=== PATIENT | female | born 1975 | race Caucasian/White ===

== ENCOUNTER 2016-08-10 13:43 | Emergency (ER) | payer OTHER ==
[~2016-08-10] VITALS: Ht 167.6 cm; Wt 57.6 kg
[2016-08-10] MEDS ORDERED: MAGIC MOUTHWASH SWISH&SPIT (14:12)
[2016-08-10] MEDS ORDERED: SEROQUEL 50 MG50 MG PO (14:21)
[2016-08-10] MEDS ORDERED: TRAZODONE HCL50 MG PO (14:21)
[2016-08-10] MEDS ORDERED: AMBIEN 5 MG TABL5 M1 PO (14:21)
[2016-08-10] MEDS ORDERED: UNICOMPLEX M TA1 TA1 PO (14:22)
[2016-08-10] MEDS ORDERED: ZOLOFT25 MG PO (14:22)
[2016-08-10] MEDS ORDERED: CLONAZEPAM 0.50.5 M1 PO (14:22)
[2016-08-10 14:23] VITALS: BP 133/100
== END 2016-08-10 14:24 | disposition home or self-care (01) ==
LOC: ER 13:43
DX: K02.9 Dental caries, unspecified (principal); R50.9 Fever, unspecified; R11.0 Nausea; F17.210 Nicotine dependence, cigarettes, uncomplicated; F12.90 Cannabis use, unspecified, uncomplicated; Z88.8 Allergy status to other drugs, medicaments and biological substances

== ENCOUNTER 2017-09-13 16:31 | Emergency (ER) | payer OTHER ==
[~2017-09-13] VITALS: Ht 167.6 cm; Wt 68.0 kg
--- NOTE | ~2017-09-13 | EKG ---
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[facility] : 1975 Requested By: Khanh Pond Order Number: [id number] MD: Jovani Carroll Measurements Intervals [place] Rate: 70 P: 58 NJ: 159 QRS: -17 QRSD: 94 T: 31 QT: 406 QTc: 439 Interpretive Statements Sinus rhythm Borderline left axis deviation No previous ECG available for comparison Electronically Signed On 09-14-2017 8:02:36 CLINICAL TRIALS SYSTEMS ADMINISTRATOR by Jovani Carroll [email or web address] <ELECTRONICALLY SIGNED> By: Jovani Carroll MD, [facility] 09/14/17 0802 1859 58 Jovani Carroll MD, FACC /EPI
[~2017-09-13 16:31] MED LIST: AMBIEN 5 MG TABL5 M1 PO; CLONAZEPAM 0.50.5 M1 PO; MAGIC MOUTHWASH SWISH&SPIT; SEROQUEL 50 MG50 MG PO; TRAZODONE HCL50 MG PO; UNICOMPLEX M TA1 TA1 PO; ZOLOFT25 MG PO
[2017-09-13 16:58] LABS: URINE BILIRUBIN NEGATIVE (Negative); URINE BLOOD NEGATIVE (Negative); URINE CLARITY CLEAR; URINE COLOR YELLOW; URINE GLUCOSE-RANDOM* NEGATIVE (Negative); URINE KETONES NEGATIVE (Negative); URINE LEUKOCYTES NEGATIVE (Negative); URINE NITRITE NEGATIVE (Negative); URINE PROTEIN (DIPSTICK) NEGATIVE (Negative); URINE SPECIFIC GRAVITY <= 1.005 (1.005-1.035); URINE UROBILINOGEN 0.2 E.U./dl (0.2-1.0)
[2017-09-13 17:15] LABS: ABSOLUTE NEUTROPHILS 3.5 thou/uL (1.4-8.2); BASOPHILS 0.7 % (0.0-2.0); EOSINOPHILS 1.3 % (0.0-3.0); HEMATOCRIT 36.8 % (37.0-47.0); HEMOGLOBIN 12.8 gm/dL (12.0-15.0); LYMPHOCYTES 35.2 % (24.0-44.0); MCH 32.1 pg (26.0-34.0); MCHC 34.7 g/dL (28.0-37.0); MCV 92.5 fL (80.0-100.0); MONOCYTES 6.4 % (1.0-8.0); PLATELET COUNT 290 thou/uL (150-400); POLYS 56.4 % (36.0-66.0); RBC 3.99 mil/uL (4.20-5.00); RDW 11.7 % (10.5-14.5); WBC 6.3 thou/uL (4.0-11.0)
[2017-09-13] MEDS ORDERED: DEPAKOTE ER500 MG PO (17:16)
[2017-09-13] MEDS ORDERED: PHENERGAN 25 MG25 M1 PO ×2 (17:17→19:48)
[2017-09-13] MEDS ORDERED: NICOTINE TRANSD21 M1 (17:18)
[2017-09-13 17:21] LABS: CALCIUM 9.1 mg/dL (8.5-10.1); CREATININE 0.8 mg/dL (0.6-1.0); POTASSIUM 3.9 mmol/L (3.5-5.1)
[2017-09-13] MEDS ORDERED: AMOXICILLIN500 M1 PO (19:43)
[2017-09-13] MEDS ORDERED: ANTIVERT25 MG PO (19:43)
[2017-09-13] MEDS ORDERED: IBUPROFEN 600600 M1 PO (19:43)
== END 2017-09-13 19:56 | disposition home or self-care (01) ==
LOC: ER 16:31
PROVIDERS: Nurse Practitioner
DX: R51 Headache (principal); R11.2 Nausea with vomiting, unspecified; R68.84 Jaw pain; R42 Dizziness and giddiness; Z87.891 Personal history of nicotine dependence; Z88.8 Allergy status to other drugs, medicaments and biological substances

== ENCOUNTER 2017-12-30 12:38 | Emergency (ER) | payer OTHER ==
[~2017-12-30] VITALS: Ht 167.6 cm; Wt 53.5 kg
[~2017-12-30 12:38] MED LIST changes: +AMOXICILLIN500 M1 PO; +ANTIVERT25 MG PO; +DEPAKOTE ER500 MG PO; +IBUPROFEN 600600 M1 PO; +NICOTINE TRANSD21 M1; +PHENERGAN 25 MG25 M1 PO
[2017-12-30 13:27] LABS: ABSOLUTE NEUTROPHILS 5.1 thou/uL (1.4-8.2); BASOPHILS 0.6 % (0.0-2.0); EOSINOPHILS 0.4 % (0.0-3.0); HEMOGLOBIN 15.1 gm/dL (12.0-15.0); LYMPHOCYTES 16.2 % (24.0-44.0); MCH 32.3 pg (26.0-34.0); MCHC 34.3 g/dL (28.0-37.0); MCV 94.3 fL (80.0-100.0); MONOCYTES 7.8 % (1.0-8.0); PLATELET COUNT 327 thou/uL (150-400); RBC 4.67 mil/uL (4.20-5.00); RDW 13.4 % (10.5-14.5); WBC 6.8 thou/uL (4.0-11.0)
[2017-12-30 13:29] LABS: URINE BILIRUBIN NEGATIVE (Negative); URINE BLOOD NEGATIVE (Negative); URINE CLARITY CLEAR; URINE COLOR YELLOW; URINE GLUCOSE-RANDOM* NEGATIVE (Negative); URINE KETONES TRACE (Negative); URINE LEUKOCYTES-REFLEX NEGATIVE (Negative); URINE NITRITE-REFLEX NEGATIVE (Negative); URINE PROTEIN (DIPSTICK) NEGATIVE (Negative)
[2017-12-30 13:35] LABS: CALCIUM 10.2 mg/dL (8.5-10.1); CREATININE 0.7 mg/dL (0.6-1.0); POTASSIUM 3.8 mmol/L (3.5-5.1)
[2017-12-30 13:40] LABS: ALBUMIN 4.2 g/dL (3.4-5.0); TOTAL BILIRUBIN 0.7 mg/dL (<0.1-1.0); TOTAL PROTEIN 8.5 g/dL (6.4-8.2)
[2017-12-30] MEDS ORDERED: HYDROCODONE-AP1 EAC6 PO (14:50)
[2017-12-30 15:20] VITALS: BP 136/88
== END 2017-12-30 15:20 | disposition home or self-care (01) ==
LOC: ER 12:38
PROVIDERS: Physician Assistant
DX: R10.9 Unspecified abdominal pain (principal); R11.2 Nausea with vomiting, unspecified; F31.9 Bipolar disorder, unspecified; M79.601 Pain in right arm; R07.81 Pleurodynia; Y04.8XXA Assault by other bodily force, initial encounter; Y93.89 Activity, other specified; Y92.89 Other specified places as the place of occurrence of the external cause; Y99.8 Other external cause status

== ENCOUNTER 2018-05-12 17:37 | Emergency (ER) | payer OTHER ==
[~2018-05-12] VITALS: Ht 167.6 cm; Wt 52.2 kg
[~2018-05-12 17:37] MED LIST changes: +HYDROCODONE-AP1 EAC6 PO
[2018-05-12 18:12] LABS: URINE BILIRUBIN NEGATIVE (Negative); URINE BLOOD NEGATIVE (Negative); URINE CLARITY CLEAR; URINE COLOR YELLOW; URINE GLUCOSE-RANDOM* NEGATIVE (Negative); URINE KETONES NEGATIVE (Negative); URINE LEUKOCYTES-REFLEX NEGATIVE (Negative); URINE NITRITE-REFLEX NEGATIVE (Negative); URINE PROTEIN (DIPSTICK) NEGATIVE (Negative); URINE UROBILINOGEN 0.2 E.U./dl (0.2-1.0)
[2018-05-12 18:42] LABS: ABSOLUTE NEUTROPHILS 3.6 thou/uL (1.4-8.2); BASOPHILS 0.4 % (0.0-2.0); EOSINOPHILS 1.4 % (0.0-3.0); HEMATOCRIT 47.2 % (37.0-47.0); HEMOGLOBIN 16.5 gm/dL (12.0-15.0); LYMPHOCYTES 14.7 % (24.0-44.0); MCV 97.1 fL (80.0-100.0); PLATELET COUNT 272 thou/uL (150-400); POLYS 72.5 % (36.0-66.0); RBC 4.86 mil/uL (4.20-5.00); RDW 12.4 % (10.5-14.5); WBC 4.9 thou/uL (4.0-11.0)
[2018-05-12 18:49] LABS: CREATININE 0.7 mg/dL (0.6-1.0); POTASSIUM 3.7 mmol/L (3.5-5.1)
[2018-05-12 18:55] LABS: ALBUMIN 4.2 g/dL (3.4-5.0); TOTAL BILIRUBIN 0.5 mg/dL (<0.1-1.0); TOTAL PROTEIN 8.9 g/dL (6.4-8.2)
[2018-05-12] MEDS ORDERED: NORCO 5-325 TA1 EACH PO (20:11)
[2018-05-12 20:29] VITALS: BP 127/84
== END 2018-05-12 20:30 | disposition home or self-care (01) ==
LOC: ER 17:37
PROVIDERS: Physician Assistant
DX: R10.32 Left lower quadrant pain (principal); R30.0 Dysuria; M54.5 Low back pain; F17.210 Nicotine dependence, cigarettes, uncomplicated; Z88.8 Allergy status to other drugs, medicaments and biological substances; Z87.440 Personal history of urinary (tract) infections; Z87.19 Personal history of other diseases of the digestive system; Z90.710 Acquired absence of both cervix and uterus

== ENCOUNTER 2021-08-23 01:51 | Inpatient (IN) | payer OTHER ==
[~2021-08-23] VITALS: Ht 172.7 cm; Wt 62.6 kg
[2021-08-23] VITALS (18 sets, daily range): BP systolic 44–164; BP diastolic 22–134
--- NOTE | ~2021-08-23 | EMS ---
[address] [address] EMS Patient Care Report Name: ANNIKA PAZ Room #: 244-P ADM IN M.R.#: [id number] Admission: 08/23/21 Attend Phys: Art Bach DO Discharge: Date of : 71 Report #: [id number] THIS REPORT FOR: //name// Report Transmitted: 08/23/2021 07:02 EMS Care Summary [place], [place]/[facility] Incident [id number] @ 08/23/2021 00:53 Incident Location [address] [place] [address] Patient ANNIKA PAZ Female, 46 Years 1975 Patient Address Patient History Substance Abuse,Depression,Anxiety, Patient Allergies Ibuprofen,Naproxen, Patient Medications Unknown, Chief Complaint Cardiac arrest Disposition Transported [place] Dispatch Reason Cardiac Arrest/ Transported To [facility] Narrative Arrived on scene to find the patient pulseless and unresponsive laying supine in the bed of the hotel room. Calling constitution party who was the patient's fiance stated that "she had been snoring 10 minutes ago" then the calling constitution party returned to the hotel room and found her unresponsive. Upon our arrival the calling constitution party yelled something about "trying narcan." Patient had track campo on both upper extremities. Patient was cold to the touch upon our arrival, but lacked any [address] [address] EMS Patient Care Report Name: ANNIKA PAZ Room #: 244-P [facility] IN .R.#: [id number] Admission: 08/23/21 Attend Phys: Art Bach DO Discharge: Date of : 71 Report #: [id number] signs of rigor mortis or dependent lividity. Patient moved off the bed to the floor and ACLS performed per [facility] cardiac arrest protocol. Patient transported and transferred to receiving facility with ongoing resuscitation in progression upon transfer of patient to facility. Initial Vitals @01:44P: 84,R: 82,EtCO2: 38, @01:33P: 119,R: 11,EtCO2: 27, @01:13P: 80,R: 12,EtCO2: 22, @01:30P: 80,R: 11,EtCO2: 29, @01:23P: 163,R: 14, @01:34P: 146,R: 23,EtCO2: 38, @01:41P: 117,R: 81,EtCO2: 30, @01:35P: 29,R: 23,EtCO2: 35, @01:38P: 72,R: 60,EtCO2: 32, @01:09P: 34, @01:50P: 57,R: 81,EtCO2: 36, @01:31P: 135,R: 16,EtCO2: 32, @01:27P: 119, @01:30P: 153,EtCO2: 23, @01:52P: 57,R: 31,EtCO2: 29, @01:11P: 140,R: 13,EtCO2: 36, @01:27P: 114,R: 20,EtCO2: 32, @01:46P: 43,R: 80,EtCO2: 44, @01:41P: 88,R: 79,EtCO2: 51, @01:45P: 66,R: 3,EtCO2: 44, @01:40P: 108,R: 81,EtCO2: 28, @01:20TyUP2: 45, @01:14P: 149,R: 11,EtCO2: 20, @01:22P: 80,R: 81,EtCO2: 40, @01:12P: 172,R: 11,EtCO2: 23, @01:32P: 140,R: 12,EtCO2: 32, @01:36P: 201,R: 13,EtCO2: 31, @01:19P: 49,R: 11,EtCO2: 22, @01:24P: 96,R: 12,EtCO2: 28, @01:42P: 108,R: 81,EtCO2: 46, @01:22R: 12,EtCO2: 35, @01:18P: 171,R: 11,EtCO2: 18, @01:47P: 101,R: 80,EtCO2: 43, @01:33P: 139,R: 13,EtCO2: 28, @01:16P: 173, @01:49P: 86,R: 81,EtCO2: 43, @01:39P: 154,R: 69,EtCO2: 20, @01:43P: 146,R: 80,EtCO2: 44, @01:07P: 76,R: 10,GCS: 3,Glucose: 233, [facility] [address] [place] [address] EMS Patient Care Report Name: ANNIKA PAZ Room #: 244-P ADM IN M.R.#: [id number] Admission: 08/23/21 Attend Phys: Art Bach DO Discharge: Date of : 71 Report #: [id number] Assessments @01:04MENTAL:Unresponsive,SKIN:Pale,Cold,HEENT:Eyes: Right: Non-Reactive,Eyes: Left: Non-Reactive,Neck/Airway: No Abnormalities,LUNG SOUNDS:Left Upper: No Abnormalities,Right Upper: No Abnormalities,Left Lower: No Abnormalities,Right Lower: No Abnormalities,ABDOMEN:Left Upper: No Abnormalities,Right Upper: No Abnormalities,Left Lower: No Abnormalities,Right Lower: No Abnormalities,PELVIS//GI:No Abnormalities,EXTREMITIES:Left Arm: Other,Right Arm: Other,Left Leg: No Abnormalities,Right Leg: No Abnormalities,PULSE:NEURO:@01:45MENTAL:Unresponsive,SKIN:Cold,HEENT:Eyes: Left: Non-Reactive,Eyes: Right: Non-Reactive,LUNG SOUNDS:ABDOMEN:PELVIS//GI:EXTREMITIES:PULSE:NEURO: Impression Cardiac arrest Procedures @01:33 Response: ImprovedSucceeded @01:04 Response: ImprovedSucceeded @01:27 Epinephrine 1:10 - 1 Milligrams (mg) - Intraosseous (IO) Response: Improved @01:14 Epinephrine 1:10 - 1 Milligrams (mg) - Intraosseous (IO) Response: Unchanged @01:30 Response: UnchangedSucceeded @01:18 Epinephrine 1:10 - 1 Milligrams (mg) - Intraosseous (IO) Response: Unchanged @01:22 Epinephrine 1:10 - 1 Milligrams (mg) - Intraosseous (IO) Response: Unchanged @01:31 Epinephrine 1:10 - 1 Milligrams (mg) - Intraosseous (IO) Response: Unchanged @01:41 Epinephrine 1:10 - 1 Milligrams (mg) - Intraosseous (IO) Response: Unchanged @01:09 Epinephrine 1:10 - 1 Milligrams (mg) - Intraosseous (IO) Response: Unchanged @01:33 Amiodarone - 300 Milligrams (mg) - Intraosseous (IO) Response: Improved @01:06 Oxygen FlowRate: 15 Device: Bag Valve Mask (BVM) Response: UnchangedSucceeded @01:07 iGEL Response: ImprovedSucceeded @01:08 Intraosseous - Normal Saline (.9% NaCl) 350cc (EZ-IO (Blue 25mm)) Site: PY-Smtst-Cngai Proximal Response: UnchangedSucceeded @01:04 ALS Assessment Response: UnchangedSucceeded @01:11 Response: UnchangedSucceeded @01:32 Suction Response: ImprovedSucceeded Timeline 00:51,[place] [address] EMS Patient Care Report Name: ANNIKA PAZ Room #: 244-P [facility] IN M.R.#: [id number] Admission: 08/23/21 Attend Phys: Art Bach DO Discharge: Date of : 71 Report #: [id number] 00:51,Dispatch Notified 00:53,Dispatched 00:54,En Route 00:58,On Scene 01:04,At Patient 01:04,Response: ImprovedSucceeded, 01:04,ALS Assessment,Response: UnchangedSucceeded, 01:06,Oxygen FlowRate: 15 Device: Bag Valve Mask (BVM) Response: UnchangedSucceeded, 01:07,iGEL Response: ImprovedSucceeded, 01:07,BP: / M,PULSE: 76,RR: 10 R,SPO2: Ox,ETCO2: ,B,PAIN: ,GCS: 3, 01:08,Intraosseous - Normal Saline (.9% NaCl) 350cc EZ-IO (Blue 25mm) Site: ZY-Umipy-Fjvxr Proximal,Response: UnchangedSucceeded, 01:09,BP: / M,PULSE: 34,RR: R,SPO2: Ox,ETCO2: ,BG: ,PAIN: ,GCS: , 01:09,Epinephrine 1:10 - 1 Milligrams (mg) - Intraosseous (IO),Response: Unchanged 01:10,BP: / M,PULSE: ,RR: R,SPO2: Ox,ETCO2: 45 ,BG: ,PAIN: ,GCS: , 01:11,Response: UnchangedSucceeded, 01:11,BP: / M,PULSE: 140,RR: 13 R,SPO2: Ox,ETCO2: 36 ,BG: ,PAIN: ,GCS: , 01:12,BP: / M,PULSE: 172,RR: 11 R,SPO2: Ox,ETCO2: 23 ,BG: ,PAIN: ,GCS: , 01:13,BP: / M,PULSE: 80,RR: 12 R,SPO2: Ox,ETCO2: 22 ,BG: ,PAIN: ,GCS: , 01:14,Epinephrine 1:10 - 1 Milligrams (mg) - Intraosseous (IO),Response: Unchanged 01:14,BP: / M,PULSE: 149,RR: 11 R,SPO2: Ox,ETCO2: 20 ,BG: ,PAIN: ,GCS: , 01:16,BP: / M,PULSE: 173,RR: R,SPO2: Ox,ETCO2: ,BG: ,PAIN: ,GCS: , 01:18,Epinephrine 1:10 - 1 Milligrams (mg) - Intraosseous (IO),Response: Unchanged 01:18,BP: / M,PULSE: 171,RR: 11 R,SPO2: Ox,ETCO2: 18 ,BG: ,PAIN: ,GCS: , 01:19,BP: / M,PULSE: 49,RR: 11 R,SPO2: Ox,ETCO2: 22 ,BG: ,PAIN: ,GCS: , 01:22,BP: / M,PULSE: 80,RR: 81 R,SPO2: Ox,ETCO2: 40 ,BG: ,PAIN: ,GCS: , 01:22,Epinephrine 1:10 - 1 Milligrams (mg) - Intraosseous (IO),Response: Unchanged 01:22,BP: / M,PULSE: ,RR: 12 R,SPO2: Ox,ETCO2: 35 ,BG: ,PAIN: ,GCS: , 01:23,BP: / M,PULSE: 163,RR: 14 R,SPO2: Ox,ETCO2: ,BG: ,PAIN: ,GCS: , 01:24,BP: / M,PULSE: 96,RR: 12 R,SPO2: Ox,ETCO2: 28 ,BG: ,PAIN: ,GCS: , 01:27,BP: / M,PULSE: 114,RR: 20 R,SPO2: Ox,ETCO2: 32 ,BG: ,PAIN: ,GCS: , 01:27,Epinephrine 1:10 - 1 Milligrams (mg) - Intraosseous (IO),Response: Improved 01:27,BP: / M,PULSE: 119,RR: R,SPO2: Ox,ETCO2: ,BG: ,PAIN: ,GCS: , 01:30,Response: UnchangedSucceeded, 01:30,BP: / M,PULSE: 80,RR: 11 R,SPO2: Ox,ETCO2: 29 ,BG: ,PAIN: ,GCS: , 01:30,BP: / M,PULSE: 153,RR: R,SPO2: Ox,ETCO2: 23 ,BG: ,PAIN: ,GCS: , 01:31,Epinephrine 1:10 - 1 Milligrams (mg) - Intraosseous (IO),Response: Unchanged 01:31,BP: / M,PULSE: 135,RR: 16 R,SPO2: Ox,ETCO2: 32 ,BG: ,PAIN: ,GCS: , 01:32,Suction Response: ImprovedSucceeded, [facility] [address] [place] [address] EMS Patient Care Report Name: ANNIKA PAZ Room #: 244-P [facility] IN M.R.#: [id number] Admission: 08/23/21 Attend Phys: Art Bach DO Discharge: Date of : 71 Report #: [id number] 01:32,BP: / M,PULSE: 140,RR: 12 R,SPO2: Ox,ETCO2: 32 ,BG: ,PAIN: ,GCS: , 01:33,Response: ImprovedSucceeded, 01:33,BP: / M,PULSE: 139,RR: 13 R,SPO2: Ox,ETCO2: 28 ,BG: ,PAIN: ,GCS: , 01:33,Amiodarone - 300 Milligrams (mg) - Intraosseous (IO),Response: Improved 01:33,BP: / M,PULSE: 119,RR: 11 R,SPO2: Ox,ETCO2: 27 ,BG: ,PAIN: ,GCS: , 01:34,BP: / M,PULSE: 146,RR: 23 R,SPO2: Ox,ETCO2: 38 ,BG: ,PAIN: ,GCS: , 01:35,BP: / M,PULSE: 29,RR: 23 R,SPO2: Ox,ETCO2: 35 ,BG: ,PAIN: ,GCS: , 01:36,BP: / M,PULSE: 201,RR: 13 R,SPO2: Ox,ETCO2: 31 ,BG: ,PAIN: ,GCS: , 01:38,BP: / M,PULSE: 72,RR: 60 R,SPO2: Ox,ETCO2: 32 ,BG: ,PAIN: ,GCS: , 01:39,BP: / M,PULSE: 154,RR: 69 R,SPO2: Ox,ETCO2: 20 ,BG: ,PAIN: ,GCS: , 01:39,Depart Scene 01:40,BP: / M,PULSE: 108,RR: 81 R,SPO2: Ox,ETCO2: 28 ,BG: ,PAIN: ,GCS: , 01:41,Epinephrine 1:10 - 1 Milligrams (mg) - Intraosseous (IO),Response: Unchanged 01:41,BP: / M,PULSE: 88,RR: 79 R,SPO2: Ox,ETCO2: 51 ,BG: ,PAIN: ,GCS: , 01:41,BP: / M,PULSE: 117,RR: 81 R,SPO2: Ox,ETCO2: 30 ,BG: ,PAIN: ,GCS: , 01:42,BP: / M,PULSE: 108,RR: 81 R,SPO2: Ox,ETCO2: 46 ,BG: ,PAIN: ,GCS: , 01:43,BP: / M,PULSE: 146,RR: 80 R,SPO2: Ox,ETCO2: 44 ,BG: ,PAIN: ,GCS: , 01:44,BP: / M,PULSE: 84,RR: 82 R,SPO2: Ox,ETCO2: 38 ,BG: ,PAIN: ,GCS: , 01:45,BP: / M,PULSE: 66,RR: 3 R,SPO2: Ox,ETCO2: 44 ,BG: ,PAIN: ,GCS: , 01:46,BP: / M,PULSE: 43,RR: 80 R,SPO2: Ox,ETCO2: 44 ,BG: ,PAIN: ,GCS: , 01:47,BP: / M,PULSE: 101,RR: 80 R,SPO2: Ox,ETCO2: 43 ,BG: ,PAIN: ,GCS: , 01:49,BP: / M,PULSE: 86,RR: 81 R,SPO2: Ox,ETCO2: 43 ,BG: ,PAIN: ,GCS: , 01:50,At Destination 01:50,BP: / M,PULSE: 57,RR: 81 R,SPO2: Ox,ETCO2: 36 ,BG: ,PAIN: ,GCS: , 01:52,BP: / M,PULSE: 57,RR: 31 R,SPO2: Ox,ETCO2: 29 ,BG: ,PAIN: ,GCS: , 02:08,Call Closed Disclaimer v1.1 Copyright 2021 [employer] This EMS Care Summary contains data elements from the applicable legal record (which may be displayed differently). It is designed to provide pertinent information for the following purposes: continuity of care, clinical quality, and state data reporting. The complete legal record is available to ED staff and administrators of the receiving hospital in [employer] Patient Tracker. All data is provided "as is."
--- NOTE | ~2021-08-23 | EMS ---
[address] [address] EMS Patient Care Report Name: ANNIKA PAZ Room #: 244-P ADM IN M.R.#: [id number] Admission: 08/23/21 Attend Phys: Art aBch DO Discharge: Date of : 71 Report #: [id number] THIS REPORT FOR: //name// Report Transmitted: 08/23/2021 08:04 EMS Care Summary [place], [place]/[facility] Incident [id number] @ 08/23/2021 00:53 Incident Location [address] [place] [address] Patient ANNIKA PAZ Female, 46 Years 1975 Patient Address Patient History Substance Abuse,Depression,Anxiety, Patient Allergies Ibuprofen,Naproxen, Patient Medications Unknown, Chief Complaint Cardiac arrest Disposition Transported Lights/[place] Dispatch Reason Cardiac Arrest/ Transported To [facility] Narrative Arrived on scene to find the patient pulseless and unresponsive laying supine in the bed of the hotel room. Calling alliance party who was the patient's fiance stated that "she had been snoring 10 minutes ago" then the calling alliance party returned to the hotel room and found her unresponsive. Upon our arrival the calling alliance party yelled something about "trying narcan." Patient had track campo on both upper extremities. Patient was cold to the touch upon our arrival, but lacked any [address] [address] EMS Patient Care Report Name: ANNIKA PAZ Room #: 244-P [facility] IN .R.#: [id number] Admission: 08/23/21 Attend Phys: Art Bach DO Discharge: Date of : 71 Report #: [id number] signs of rigor mortis or dependent lividity. Patient moved off the bed to the floor and ACLS performed per [facility] cardiac arrest protocol. Patient transported and transferred to receiving facility with ongoing resuscitation in progression upon transfer of patient to facility. Initial Vitals @01:44P: 84,R: 82,EtCO2: 38, @01:33P: 119,R: 11,EtCO2: 27, @01:13P: 80,R: 12,EtCO2: 22, @01:30P: 80,R: 11,EtCO2: 29, @01:23P: 163,R: 14, @01:34P: 146,R: 23,EtCO2: 38, @01:41P: 117,R: 81,EtCO2: 30, @01:35P: 29,R: 23,EtCO2: 35, @01:38P: 72,R: 60,EtCO2: 32, @01:09P: 34, @01:50P: 57,R: 81,EtCO2: 36, @01:31P: 135,R: 16,EtCO2: 32, @01:27P: 119, @01:30P: 153,EtCO2: 23, @01:52P: 57,R: 31,EtCO2: 29, @01:11P: 140,R: 13,EtCO2: 36, @01:27P: 114,R: 20,EtCO2: 32, @01:46P: 43,R: 80,EtCO2: 44, @01:41P: 88,R: 79,EtCO2: 51, @01:45P: 66,R: 3,EtCO2: 44, @01:40P: 108,R: 81,EtCO2: 28, @01:56PsUZ2: 45, @01:14P: 149,R: 11,EtCO2: 20, @01:22P: 80,R: 81,EtCO2: 40, @01:12P: 172,R: 11,EtCO2: 23, @01:32P: 140,R: 12,EtCO2: 32, @01:36P: 201,R: 13,EtCO2: 31, @01:19P: 49,R: 11,EtCO2: 22, @01:24P: 96,R: 12,EtCO2: 28, @01:42P: 108,R: 81,EtCO2: 46, @01:22R: 12,EtCO2: 35, @01:18P: 171,R: 11,EtCO2: 18, @01:47P: 101,R: 80,EtCO2: 43, @01:33P: 139,R: 13,EtCO2: 28, @01:16P: 173, @01:49P: 86,R: 81,EtCO2: 43, @01:39P: 154,R: 69,EtCO2: 20, @01:43P: 146,R: 80,EtCO2: 44, @01:07P: 76,R: 10,GCS: 3,Glucose: 233, [facility] [address] [facility] [place] [address] EMS Patient Care Report Name: ANNIKA PAZ Room #: 244-P ADM IN M.R.#: [id number] Admission: 08/23/21 Attend Phys: Art Bach DO Discharge: Date of : 71 Report #: [id number] Assessments @01:04MENTAL:Unresponsive,SKIN:Pale,Cold,HEENT:Eyes: Right: Non-Reactive,Eyes: Left: Non-Reactive,Neck/Airway: No Abnormalities,LUNG SOUNDS:Left Upper: No Abnormalities,Right Upper: No Abnormalities,Left Lower: No Abnormalities,Right Lower: No Abnormalities,ABDOMEN:Left Upper: No Abnormalities,Right Upper: No Abnormalities,Left Lower: No Abnormalities,Right Lower: No Abnormalities,PELVIS//GI:No Abnormalities,EXTREMITIES:Left Arm: Other,Right Arm: Other,Left Leg: No Abnormalities,Right Leg: No Abnormalities,PULSE:NEURO:@01:45MENTAL:Unresponsive,SKIN:Cold,HEENT:Eyes: Left: Non-Reactive,Eyes: Right: Non-Reactive,LUNG SOUNDS:ABDOMEN:PELVIS//GI:EXTREMITIES:PULSE:NEURO: Impression Cardiac arrest Procedures @01:33 Response: ImprovedSucceeded @01:04 Response: ImprovedSucceeded @01:27 Epinephrine 1:10 - 1 Milligrams (mg) - Intraosseous (IO) Response: Improved @01:14 Epinephrine 1:10 - 1 Milligrams (mg) - Intraosseous (IO) Response: Unchanged @01:30 Response: UnchangedSucceeded @01:18 Epinephrine 1:10 - 1 Milligrams (mg) - Intraosseous (IO) Response: Unchanged @01:22 Epinephrine 1:10 - 1 Milligrams (mg) - Intraosseous (IO) Response: Unchanged @01:31 Epinephrine 1:10 - 1 Milligrams (mg) - Intraosseous (IO) Response: Unchanged @01:41 Epinephrine 1:10 - 1 Milligrams (mg) - Intraosseous (IO) Response: Unchanged @01:09 Epinephrine 1:10 - 1 Milligrams (mg) - Intraosseous (IO) Response: Unchanged @01:33 Amiodarone - 300 Milligrams (mg) - Intraosseous (IO) Response: Improved @01:06 Oxygen FlowRate: 15 Device: Bag Valve Mask (BVM) Response: UnchangedSucceeded @01:07 iGEL Response: ImprovedSucceeded @01:08 Intraosseous - Normal Saline (.9% NaCl) 350cc (EZ-IO (Blue 25mm)) Site: BN-Gfjnu-Endwt Proximal Response: UnchangedSucceeded @01:04 ALS Assessment Response: UnchangedSucceeded @01:11 Response: UnchangedSucceeded @01:32 Suction Response: ImprovedSucceeded Timeline 00:51,[place] [address] EMS Patient Care Report Name: ANNIKA PAZ Room #: 244-P [facility] IN M.R.#: [id number] Admission: 08/23/21 Attend Phys: Art Bach DO Discharge: Date of : 71 Report #: [id number] 00:51,Dispatch Notified 00:53,Dispatched 00:54,En Route 00:58,On Scene 01:04,At Patient 01:04,Response: ImprovedSucceeded, 01:04,ALS Assessment,Response: UnchangedSucceeded, 01:06,Oxygen FlowRate: 15 Device: Bag Valve Mask (BVM) Response: UnchangedSucceeded, 01:07,iGEL Response: ImprovedSucceeded, 01:07,BP: / M,PULSE: 76,RR: 10 R,SPO2: Ox,ETCO2: ,B,PAIN: ,GCS: 3, 01:08,Intraosseous - Normal Saline (.9% NaCl) 350cc EZ-IO (Blue 25mm) Site: YQ-Ocrfy-Whbmk Proximal,Response: UnchangedSucceeded, 01:09,BP: / M,PULSE: 34,RR: R,SPO2: Ox,ETCO2: ,BG: ,PAIN: ,GCS: , 01:09,Epinephrine 1:10 - 1 Milligrams (mg) - Intraosseous (IO),Response: Unchanged 01:10,BP: / M,PULSE: ,RR: R,SPO2: Ox,ETCO2: 45 ,BG: ,PAIN: ,GCS: , 01:11,Response: UnchangedSucceeded, 01:11,BP: / M,PULSE: 140,RR: 13 R,SPO2: Ox,ETCO2: 36 ,BG: ,PAIN: ,GCS: , 01:12,BP: / M,PULSE: 172,RR: 11 R,SPO2: Ox,ETCO2: 23 ,BG: ,PAIN: ,GCS: , 01:13,BP: / M,PULSE: 80,RR: 12 R,SPO2: Ox,ETCO2: 22 ,BG: ,PAIN: ,GCS: , 01:14,Epinephrine 1:10 - 1 Milligrams (mg) - Intraosseous (IO),Response: Unchanged 01:14,BP: / M,PULSE: 149,RR: 11 R,SPO2: Ox,ETCO2: 20 ,BG: ,PAIN: ,GCS: , 01:16,BP: / M,PULSE: 173,RR: R,SPO2: Ox,ETCO2: ,BG: ,PAIN: ,GCS: , 01:18,Epinephrine 1:10 - 1 Milligrams (mg) - Intraosseous (IO),Response: Unchanged 01:18,BP: / M,PULSE: 171,RR: 11 R,SPO2: Ox,ETCO2: 18 ,BG: ,PAIN: ,GCS: , 01:19,BP: / M,PULSE: 49,RR: 11 R,SPO2: Ox,ETCO2: 22 ,BG: ,PAIN: ,GCS: , 01:22,BP: / M,PULSE: 80,RR: 81 R,SPO2: Ox,ETCO2: 40 ,BG: ,PAIN: ,GCS: , 01:22,Epinephrine 1:10 - 1 Milligrams (mg) - Intraosseous (IO),Response: Unchanged 01:22,BP: / M,PULSE: ,RR: 12 R,SPO2: Ox,ETCO2: 35 ,BG: ,PAIN: ,GCS: , 01:23,BP: / M,PULSE: 163,RR: 14 R,SPO2: Ox,ETCO2: ,BG: ,PAIN: ,GCS: , 01:24,BP: / M,PULSE: 96,RR: 12 R,SPO2: Ox,ETCO2: 28 ,BG: ,PAIN: ,GCS: , 01:27,BP: / M,PULSE: 114,RR: 20 R,SPO2: Ox,ETCO2: 32 ,BG: ,PAIN: ,GCS: , 01:27,Epinephrine 1:10 - 1 Milligrams (mg) - Intraosseous (IO),Response: Improved 01:27,BP: / M,PULSE: 119,RR: R,SPO2: Ox,ETCO2: ,BG: ,PAIN: ,GCS: , 01:30,Response: UnchangedSucceeded, 01:30,BP: / M,PULSE: 80,RR: 11 R,SPO2: Ox,ETCO2: 29 ,BG: ,PAIN: ,GCS: , 01:30,BP: / M,PULSE: 153,RR: R,SPO2: Ox,ETCO2: 23 ,BG: ,PAIN: ,GCS: , 01:31,Epinephrine 1:10 - 1 Milligrams (mg) - Intraosseous (IO),Response: Unchanged 01:31,BP: / M,PULSE: 135,RR: 16 R,SPO2: Ox,ETCO2: 32 ,BG: ,PAIN: ,GCS: , 01:32,Suction Response: ImprovedSucceeded, [facility] [address] [facility] [place] [address] EMS Patient Care Report Name: ANNIKA PAZ Room #: 244-P [facility] IN M.R.#: [id number] Admission: 08/23/21 Attend Phys: Art Bach DO Discharge: Date of : 71 Report #: [id number] 01:32,BP: / M,PULSE: 140,RR: 12 R,SPO2: Ox,ETCO2: 32 ,BG: ,PAIN: ,GCS: , 01:33,Response: ImprovedSucceeded, 01:33,BP: / M,PULSE: 139,RR: 13 R,SPO2: Ox,ETCO2: 28 ,BG: ,PAIN: ,GCS: , 01:33,Amiodarone - 300 Milligrams (mg) - Intraosseous (IO),Response: Improved 01:33,BP: / M,PULSE: 119,RR: 11 R,SPO2: Ox,ETCO2: 27 ,BG: ,PAIN: ,GCS: , 01:34,BP: / M,PULSE: 146,RR: 23 R,SPO2: Ox,ETCO2: 38 ,BG: ,PAIN: ,GCS: , 01:35,BP: / M,PULSE: 29,RR: 23 R,SPO2: Ox,ETCO2: 35 ,BG: ,PAIN: ,GCS: , 01:36,BP: / M,PULSE: 201,RR: 13 R,SPO2: Ox,ETCO2: 31 ,BG: ,PAIN: ,GCS: , 01:38,BP: / M,PULSE: 72,RR: 60 R,SPO2: Ox,ETCO2: 32 ,BG: ,PAIN: ,GCS: , 01:39,BP: / M,PULSE: 154,RR: 69 R,SPO2: Ox,ETCO2: 20 ,BG: ,PAIN: ,GCS: , 01:39,Depart Scene 01:40,BP: / M,PULSE: 108,RR: 81 R,SPO2: Ox,ETCO2: 28 ,BG: ,PAIN: ,GCS: , 01:41,Epinephrine 1:10 - 1 Milligrams (mg) - Intraosseous (IO),Response: Unchanged 01:41,BP: / M,PULSE: 88,RR: 79 R,SPO2: Ox,ETCO2: 51 ,BG: ,PAIN: ,GCS: , 01:41,BP: / M,PULSE: 117,RR: 81 R,SPO2: Ox,ETCO2: 30 ,BG: ,PAIN: ,GCS: , 01:42,BP: / M,PULSE: 108,RR: 81 R,SPO2: Ox,ETCO2: 46 ,BG: ,PAIN: ,GCS: , 01:43,BP: / M,PULSE: 146,RR: 80 R,SPO2: Ox,ETCO2: 44 ,BG: ,PAIN: ,GCS: , 01:44,BP: / M,PULSE: 84,RR: 82 R,SPO2: Ox,ETCO2: 38 ,BG: ,PAIN: ,GCS: , 01:45,BP: / M,PULSE: 66,RR: 3 R,SPO2: Ox,ETCO2: 44 ,BG: ,PAIN: ,GCS: , 01:46,BP: / M,PULSE: 43,RR: 80 R,SPO2: Ox,ETCO2: 44 ,BG: ,PAIN: ,GCS: , 01:47,BP: / M,PULSE: 101,RR: 80 R,SPO2: Ox,ETCO2: 43 ,BG: ,PAIN: ,GCS: , 01:49,BP: / M,PULSE: 86,RR: 81 R,SPO2: Ox,ETCO2: 43 ,BG: ,PAIN: ,GCS: , 01:50,At Destination 01:50,BP: / M,PULSE: 57,RR: 81 R,SPO2: Ox,ETCO2: 36 ,BG: ,PAIN: ,GCS: , 01:52,BP: / M,PULSE: 57,RR: 31 R,SPO2: Ox,ETCO2: 29 ,BG: ,PAIN: ,GCS: , 02:08,Call Closed Disclaimer v1.1 Copyright 2021 [employer] This EMS Care Summary contains data elements from the applicable legal record (which may be displayed differently). It is designed to provide pertinent information for the following purposes: continuity of care, clinical quality, and state data reporting. The complete legal record is available to ED staff and administrators of the receiving hospital in [employer]'s Patient Tracker. All data is provided "as is."
--- NOTE | ~2021-08-23 | EMS ---
[address] [address] EMS Patient Care Report Name: ANNIKA PAZ Room #: 244-P [facility] IN M.R.#: [id number] Admission: 08/23/21 Attend Phys: Edison Bach DO Discharge: 08/23/21 Date of : 71 Report #: [id number] THIS REPORT FOR: //name// Report Transmitted: 08/27/2021 15:15 EMS Care Summary [place], [place]/[facility] Incident [id number] @ 08/23/2021 00:53 Incident Location [address] [place] [address] Patient ANNIKA PAZ Female, 46 Years 1975 Patient Address Patient History Substance Abuse,Depression,Anxiety, Patient Allergies Ibuprofen,Naproxen, Patient Medications Unknown, Chief Complaint Cardiac arrest Disposition Transported Lights/[place] Dispatch Reason Cardiac Arrest/ Transported To [facility] Narrative Arrived on scene to find the patient pulseless and unresponsive laying supine in the bed of the hotel room. Calling democrat who was the patient's fiance stated that "she had been snoring 10 minutes ago" then the calling democrat returned to the hotel room and found her unresponsive. Upon our arrival the calling democrat yelled something about "trying narcan." Patient had track campo on both upper extremities. Patient was cold to the touch upon our arrival, but lacked any [address] [address] EMS Patient Care Report Name: ANNIKA PAZ Room #: 244-P [facility] IN M.R.#: [id number] Admission: 08/23/21 Attend Phys: Edison Bach DO Discharge: 08/23/21 Date of : 71 Report #: [id number] signs of rigor mortis or dependent lividity. Patient moved off the bed to the floor and ACLS performed per [facility] cardiac arrest protocol. Patient transported and transferred to receiving facility with ongoing resuscitation in progression upon transfer of patient to facility. Initial Vitals @01:44P: 84,R: 82,EtCO2: 38, @01:33P: 119,R: 11,EtCO2: 27, @01:13P: 80,R: 12,EtCO2: 22, @01:30P: 80,R: 11,EtCO2: 29, @01:23P: 163,R: 14, @01:34P: 146,R: 23,EtCO2: 38, @01:41P: 117,R: 81,EtCO2: 30, @01:35P: 29,R: 23,EtCO2: 35, @01:38P: 72,R: 60,EtCO2: 32, @01:09P: 34, @01:50P: 57,R: 81,EtCO2: 36, @01:31P: 135,R: 16,EtCO2: 32, @01:27P: 119, @01:30P: 153,EtCO2: 23, @01:52P: 57,R: 31,EtCO2: 29, @01:11P: 140,R: 13,EtCO2: 36, @01:27P: 114,R: 20,EtCO2: 32, @01:46P: 43,R: 80,EtCO2: 44, @01:41P: 88,R: 79,EtCO2: 51, @01:45P: 66,R: 3,EtCO2: 44, @01:40P: 108,R: 81,EtCO2: 28, @01:23AqAV7: 45, @01:14P: 149,R: 11,EtCO2: 20, @01:22P: 80,R: 81,EtCO2: 40, @01:12P: 172,R: 11,EtCO2: 23, @01:32P: 140,R: 12,EtCO2: 32, @01:36P: 201,R: 13,EtCO2: 31, @01:19P: 49,R: 11,EtCO2: 22, @01:24P: 96,R: 12,EtCO2: 28, @01:42P: 108,R: 81,EtCO2: 46, @01:22R: 12,EtCO2: 35, @01:18P: 171,R: 11,EtCO2: 18, @01:47P: 101,R: 80,EtCO2: 43, @01:33P: 139,R: 13,EtCO2: 28, @01:16P: 173, @01:49P: 86,R: 81,EtCO2: 43, @01:39P: 154,R: 69,EtCO2: 20, @01:43P: 146,R: 80,EtCO2: 44, @01:07P: 76,R: 10,GCS: 3,Glucose: 233, [facility] [address] [place] [address] EMS Patient Care Report Name: ANNIKA PAZ #: 244-P [facility] IN M.R.#: [id number] Admission: 08/23/21 Attend Phys: Edison Bach DO Discharge: 08/23/21 Date of : 71 Report #: [id number] Assessments @01:04MENTAL:Unresponsive,SKIN:Pale,Cold,HEENT:Eyes: Right: Non-Reactive,Eyes: Left: Non-Reactive,Neck/Airway: No Abnormalities,LUNG SOUNDS:Left Upper: No Abnormalities,Right Upper: No Abnormalities,Left Lower: No Abnormalities,Right Lower: No Abnormalities,ABDOMEN:Left Upper: No Abnormalities,Right Upper: No Abnormalities,Left Lower: No Abnormalities,Right Lower: No Abnormalities,PELVIS//GI:No Abnormalities,EXTREMITIES:Right Arm: Other,Left Arm: Other,Left Leg: No Abnormalities,Right Leg: No Abnormalities,PULSE:NEURO:@01:45MENTAL:Unresponsive,SKIN:Cold,HEENT:Eyes: Right: Non-Reactive,Eyes: Left: Non-Reactive,LUNG SOUNDS:ABDOMEN:PELVIS//GI:EXTREMITIES:PULSE:NEURO: Impression Cardiac arrest Procedures @01:33 Response: ImprovedSucceeded @01:04 Response: ImprovedSucceeded @01:27 Epinephrine 1:10 - 1 Milligrams (mg) - Intraosseous (IO) Response: Improved @01:14 Epinephrine 1:10 - 1 Milligrams (mg) - Intraosseous (IO) Response: Unchanged @01:30 Response: UnchangedSucceeded @01:18 Epinephrine 1:10 - 1 Milligrams (mg) - Intraosseous (IO) Response: Unchanged @01:22 Epinephrine 1:10 - 1 Milligrams (mg) - Intraosseous (IO) Response: Unchanged @01:31 Epinephrine 1:10 - 1 Milligrams (mg) - Intraosseous (IO) Response: Unchanged @01:41 Epinephrine 1:10 - 1 Milligrams (mg) - Intraosseous (IO) Response: Unchanged @01:09 Epinephrine 1:10 - 1 Milligrams (mg) - Intraosseous (IO) Response: Unchanged @01:33 Amiodarone - 300 Milligrams (mg) - Intraosseous (IO) Response: Improved @01:06 Oxygen FlowRate: 15 Device: Bag Valve Mask (BVM) Response: UnchangedSucceeded @01:07 iGEL Response: ImprovedSucceeded @01:08 Intraosseous - Normal Saline (.9% NaCl) 350cc (EZ-IO (Blue 25mm)) Site: WG-Dtwnx-Gftnz Proximal Response: UnchangedSucceeded @01:04 ALS Assessment Response: UnchangedSucceeded @01:11 Response: UnchangedSucceeded @01:32 Suction Response: ImprovedSucceeded Timeline 00:51,[place] [address] EMS Patient Care Report Name: ANNIKA PAZ Room #: 244-P [facility] IN .R.#: [id number] Admission: 08/23/21 Attend Phys: Edison Bach DO Discharge: 08/23/21 Date of : 71 Report #: [id number] 00:51,Dispatch Notified 00:53,Dispatched 00:54,En Route 00:58,On Scene 01:04,At Patient 01:04,Response: ImprovedSucceeded, 01:04,ALS Assessment,Response: UnchangedSucceeded, 01:06,Oxygen FlowRate: 15 Device: Bag Valve Mask (BVM) Response: UnchangedSucceeded, 01:07,iGEL Response: ImprovedSucceeded, 01:07,BP: / M,PULSE: 76,RR: 10 R,SPO2: Ox,ETCO2: ,B,PAIN: ,GCS: 3, 01:08,Intraosseous - Normal Saline (.9% NaCl) 350cc EZ-IO (Blue 25mm) Site: OI-Axfrk-Ypdsx Proximal,Response: UnchangedSucceeded, 01:09,BP: / M,PULSE: 34,RR: R,SPO2: Ox,ETCO2: ,BG: ,PAIN: ,GCS: , 01:09,Epinephrine 1:10 - 1 Milligrams (mg) - Intraosseous (IO),Response: Unchanged 01:10,BP: / M,PULSE: ,RR: R,SPO2: Ox,ETCO2: 45 ,BG: ,PAIN: ,GCS: , 01:11,Response: UnchangedSucceeded, 01:11,BP: / M,PULSE: 140,RR: 13 R,SPO2: Ox,ETCO2: 36 ,BG: ,PAIN: ,GCS: , 01:12,BP: / M,PULSE: 172,RR: 11 R,SPO2: Ox,ETCO2: 23 ,BG: ,PAIN: ,GCS: , 01:13,BP: / M,PULSE: 80,RR: 12 R,SPO2: Ox,ETCO2: 22 ,BG: ,PAIN: ,GCS: , 01:14,Epinephrine 1:10 - 1 Milligrams (mg) - Intraosseous (IO),Response: Unchanged 01:14,BP: / M,PULSE: 149,RR: 11 R,SPO2: Ox,ETCO2: 20 ,BG: ,PAIN: ,GCS: , 01:16,BP: / M,PULSE: 173,RR: R,SPO2: Ox,ETCO2: ,BG: ,PAIN: ,GCS: , 01:18,Epinephrine 1:10 - 1 Milligrams (mg) - Intraosseous (IO),Response: Unchanged 01:18,BP: / M,PULSE: 171,RR: 11 R,SPO2: Ox,ETCO2: 18 ,BG: ,PAIN: ,GCS: , 01:19,BP: / M,PULSE: 49,RR: 11 R,SPO2: Ox,ETCO2: 22 ,BG: ,PAIN: ,GCS: , 01:22,BP: / M,PULSE: 80,RR: 81 R,SPO2: Ox,ETCO2: 40 ,BG: ,PAIN: ,GCS: , 01:22,Epinephrine 1:10 - 1 Milligrams (mg) - Intraosseous (IO),Response: Unchanged 01:22,BP: / M,PULSE: ,RR: 12 R,SPO2: Ox,ETCO2: 35 ,BG: ,PAIN: ,GCS: , 01:23,BP: / M,PULSE: 163,RR: 14 R,SPO2: Ox,ETCO2: ,BG: ,PAIN: ,GCS: , 01:24,BP: / M,PULSE: 96,RR: 12 R,SPO2: Ox,ETCO2: 28 ,BG: ,PAIN: ,GCS: , 01:27,BP: / M,PULSE: 114,RR: 20 R,SPO2: Ox,ETCO2: 32 ,BG: ,PAIN: ,GCS: , 01:27,Epinephrine 1:10 - 1 Milligrams (mg) - Intraosseous (IO),Response: Improved 01:27,BP: / M,PULSE: 119,RR: R,SPO2: Ox,ETCO2: ,BG: ,PAIN: ,GCS: , 01:30,Response: UnchangedSucceeded, 01:30,BP: / M,PULSE: 80,RR: 11 R,SPO2: Ox,ETCO2: 29 ,BG: ,PAIN: ,GCS: , 01:30,BP: / M,PULSE: 153,RR: R,SPO2: Ox,ETCO2: 23 ,BG: ,PAIN: ,GCS: , 01:31,Epinephrine 1:10 - 1 Milligrams (mg) - Intraosseous (IO),Response: Unchanged 01:31,BP: / M,PULSE: 135,RR: 16 R,SPO2: Ox,ETCO2: 32 ,BG: ,PAIN: ,GCS: , 01:32,Suction Response: ImprovedSucceeded, [facility] [address] [place] [address] EMS Patient Care Report Name: ANNIKA PAZ Room #: 244-P [facility] IN M.R.#: [id number] Admission: 08/23/21 Attend Phys: Edison Bach, Discharge: 08/23/21 Date of : 71 Report #: [id number] 01:32,BP: / M,PULSE: 140,RR: 12 R,SPO2: Ox,ETCO2: 32 ,BG: ,PAIN: ,GCS: , 01:33,Response: ImprovedSucceeded, 01:33,BP: / M,PULSE: 139,RR: 13 R,SPO2: Ox,ETCO2: 28 ,BG: ,PAIN: ,GCS: , 01:33,Amiodarone - 300 Milligrams (mg) - Intraosseous (IO),Response: Improved 01:33,BP: / M,PULSE: 119,RR: 11 R,SPO2: Ox,ETCO2: 27 ,BG: ,PAIN: ,GCS: , 01:34,BP: / M,PULSE: 146,RR: 23 R,SPO2: Ox,ETCO2: 38 ,BG: ,PAIN: ,GCS: , 01:35,BP: / M,PULSE: 29,RR: 23 R,SPO2: Ox,ETCO2: 35 ,BG: ,PAIN: ,GCS: , 01:36,BP: / M,PULSE: 201,RR: 13 R,SPO2: Ox,ETCO2: 31 ,BG: ,PAIN: ,GCS: , 01:38,BP: / M,PULSE: 72,RR: 60 R,SPO2: Ox,ETCO2: 32 ,BG: ,PAIN: ,GCS: , 01:39,BP: / M,PULSE: 154,RR: 69 R,SPO2: Ox,ETCO2: 20 ,BG: ,PAIN: ,GCS: , 01:39,Depart Scene 01:40,BP: / M,PULSE: 108,RR: 81 R,SPO2: Ox,ETCO2: 28 ,BG: ,PAIN: ,GCS: , 01:41,Epinephrine 1:10 - 1 Milligrams (mg) - Intraosseous (IO),Response: Unchanged 01:41,BP: / M,PULSE: 88,RR: 79 R,SPO2: Ox,ETCO2: 51 ,BG: ,PAIN: ,GCS: , 01:41,BP: / M,PULSE: 117,RR: 81 R,SPO2: Ox,ETCO2: 30 ,BG: ,PAIN: ,GCS: , 01:42,BP: / M,PULSE: 108,RR: 81 R,SPO2: Ox,ETCO2: 46 ,BG: ,PAIN: ,GCS: , 01:43,BP: / M,PULSE: 146,RR: 80 R,SPO2: Ox,ETCO2: 44 ,BG: ,PAIN: ,GCS: , 01:44,BP: / M,PULSE: 84,RR: 82 R,SPO2: Ox,ETCO2: 38 ,BG: ,PAIN: ,GCS: , 01:45,BP: / M,PULSE: 66,RR: 3 R,SPO2: Ox,ETCO2: 44 ,BG: ,PAIN: ,GCS: , 01:46,BP: / M,PULSE: 43,RR: 80 R,SPO2: Ox,ETCO2: 44 ,BG: ,PAIN: ,GCS: , 01:47,BP: / M,PULSE: 101,RR: 80 R,SPO2: Ox,ETCO2: 43 ,BG: ,PAIN: ,GCS: , 01:49,BP: / M,PULSE: 86,RR: 81 R,SPO2: Ox,ETCO2: 43 ,BG: ,PAIN: ,GCS: , 01:50,At Destination 01:50,BP: / M,PULSE: 57,RR: 81 R,SPO2: Ox,ETCO2: 36 ,BG: ,PAIN: ,GCS: , 01:52,BP: / M,PULSE: 57,RR: 31 R,SPO2: Ox,ETCO2: 29 ,BG: ,PAIN: ,GCS: , 02:08,Call Closed Disclaimer [email or web address] Copyright 2021 [employer] This EMS Care Summary contains data elements from the applicable legal record (which may be displayed differently). It is designed to provide pertinent information for the following purposes: continuity of care, clinical quality, and state data reporting. The complete legal record is available to ED staff and administrators of the receiving hospital in [email or web address]s Patient Tracker. All data is provided "as is."
[~2021-08-23 01:51] MED LIST changes: +NORCO 5-325 TA1 EACH PO
--- NOTE | 2021-08-23 02:13 | NUR ---
RAHELN NOTIFIED [id number]
[2021-08-23 03:38] LABS: BASOPHILS 0.2 % (0.0-2.0); MONOCYTES 3.4 % (1.0-8.0); WBC 9.6 thou/uL (4.0-11.0)
[2021-08-23 03:40] LABS: ABSOLUTE NEUTROPHILS 5.8 thou/uL (1.4-8.2); EOSINOPHILS 0.9 % (0.0-3.0); LYMPHOCYTES 34.7 % (24.0-44.0); MCH 31.6 pg (26.0-34.0); MCHC 30.6 g/dL (28.0-37.0); MCV 103.4 fL (80.0-100.0); PLATELET COUNT 93 thou/uL (150-400); POLYS 60.8 % (36.0-66.0); RBC 1.36 mil/uL (4.20-5.00); RDW 13.3 % (10.5-14.5)
[2021-08-23 03:41] LABS: HEMATOCRIT 14.1 % (37.0-47.0); HEMOGLOBIN 4.3 gm/dL (12.0-15.0)
[2021-08-23 03:44] LABS: CALCIUM 9.9 mg/dL (8.5-10.1); CREATININE 1.4 mg/dL (0.6-1.0); POTASSIUM 5.8 mmol/L (3.5-5.1)
[2021-08-23 03:53] LABS: BE(vivo) -22.4 mmol/L (-2 to +3); HCO3 9.9 mmol/L (22.0-26.0); PCO2 50.6 mmHg (35.0-45.0); PO2 119.3 mmHg (80.0-100.0); sO2 94.9 % (92.0-98.0)
[2021-08-23 03:54] LABS: pH 6.909 (7.360-7.450)
[2021-08-23 03:54] LABS: ALBUMIN 2.9 g/dL (3.4-5.0); TOTAL BILIRUBIN 0.6 mg/dL (0.2-1.0); TOTAL PROTEIN 6.7 g/dL (6.4-8.2)
[2021-08-23 04:36] LABS: HEMATOCRIT 34.8 % (37.0-47.0); HEMOGLOBIN 10.5 gm/dL (12.0-15.0); MCH 30.6 pg (26.0-34.0); MCHC 30.1 g/dL (28.0-37.0); MCV 101.5 fL (80.0-100.0); RBC 3.43 mil/uL (4.20-5.00); RDW 13.6 % (10.5-14.5); WBC 14.9 thou/uL (4.0-11.0)
--- NOTE | 2021-08-23 06:08 | NUR ---
Pt arrived from ED after going to CT for scans of head, chest, and abdomen. Pt arrived at 0530. Pt hypothermic, unable to get temp at this time. Pupils fixed and dilated. Monitor initially 70, sinus rhythm, now 57, sinus elfego. SBP in 40's. Saline 1 liter bolus started. Pt already maxed on Levophed at 1 mcg/kg/min. Dopamine started at 20 mcg/kg/min, Epinephrine started at 0.7 mcg/kg/min. SBP still only 65 with MAP 39. Awaiting Vaso from pharmacy.
[2021-08-23 07:24] LABS: BE(vivo) -21.5 mmol/L (-2 to +3); HCO3 10.4 mmol/L (22.0-26.0); PCO2 56.5 mmHg (35.0-45.0); PO2 17.9 mmHg (80.0-100.0); pH 6.883 (7.360-7.450)
--- NOTE | 2021-08-23 08:31 | NUR ---
PT CODED AT 0642 AND [address]704. SEE CODE RECORD. DR. TRENT HERE AT 0715. PT MADE DNR DUE TO FUTILITY OF CARE. DR. TRENT DISCUSSED THIS WITH DR. KEN AND WITH PT'S SIGNIFICANT OTHER.
--- NOTE | 2021-08-23 09:18 | EKG ---
[facility] [place] [address] ELECTROCARDIOGRAM REPORT Name: ANNIKA PAZ CHARISSA Room #: 244-P ADM IN M.R.#: [id number] Admission: 08/23/21 Attend Phys: Art Bach DO Discharge: Date of : 71 Report #: [id number] 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 : 1975 Requested By: Shirin Parker Order Number: [id number] MD: Jovani Carroll Measurements Intervals [place] Rate: 78 P: FL: QRS: -33 QRSD: 117 T: 72 QT: 477 QTc: 544 Interpretive Statements Atrial fibrillation Nonspecific intraventricular conduction delay Diffuse ST and T wave abnormality Compared to ECG 09/13/2017 18:59:20 ST and T wave abnormality is now present Sinus rhythm no longer present Electronically Signed On 08-23-2021 9:18:36 HAZARD WASTE HANDLER by Jovani Carroll [email or web address] <ELECTRONICALLY SIGNED> By: Jovani Carroll MD, [facility] 08/23/21917 7 Jovani Carroll MD, [facility] /EPI
--- NOTE | 2021-08-23 10:11 | NUR ---
RN ASSUMED CARE FOR THIS PATIENT AT 0700 CONSIDERING PATIENT WAS IN S/P CODE RESUSCITATION, ROSC WAS ABLE TO BE ACHIEVED AROUND 0705 PT LOST HER PULSE AND WENT INTO CODE BLUE ONCE AGAIN - REFER TO RESUSCITATION DOCUMENTATION IN PT FILE FOR EXACT DETAILS ENTAILING THE CODE. RN WAS NOTIFIED BY CORN CUTTER RN DERICKMelaM THAT PT HAD CODED IN THE FIELD AND IT WAS KNOWNST BY THE PROVIDERS THAT OUT LOOK FOR THE PT WAS FUTILE BUT WAS NOT DECLARED, THE NOTES FROM THE NURSE PRACTITIONER CORRELATES WITH THE FINDING. THE HOSPITALIST FOR THE PATIENT WAS PAGED, DO WAS ABLE TO REACH OUT TO AND DECLARED MEDICAL FUTILITY ON THE PT, PT CARE WAS CONTINUED WITH THE DRIPS AND APPROPERIATE INTERVENTIONS WERE FOLLOWED THROUGH BUT PT WAS CHANGED TO A NO CODE STATUS. PT REMAINED ON SINUS CHIARA WITH MAP <60 WHILE BEING MAXXED OUT ON ALL FIVE PRESSORS. AT 0810 PT'S HR WAS KNOWN TO DECREASE AND RN WENT TO ASSESS, PT'S PULSES WERE NO LONGER PALPABLE AT THE TIME, DOPPLER WAS USED, WEAKER PULSES NOTED UNTIL AT 0813 NO SOUNDS WERE HEARD. RN WENT IN WITH ANOTHER RN CAM AND WITH THE APPROVAL FROM BOTH AND , PT WAS VERIFIED TO HAVE AT 0813. PT'S CASE IS A STATIONARY [employer]ANT [employer]PER[employer]'S CASE, THE STATIONARY PLANT OPERATORS WAS NOTIFIED BY THE RN. ALL BELONGINGS THAT WERE PRESENT WITH THE PATIENT WAS SENT DOWN, IT SHOULD BE SPECIFIED THAT THE WATCH/NECKLACE THAT WERE SENT DOWN DID NOT SEEM TO HAVE ANY MONETARY VALUE/BRAND RECOGNITION. NOTES SHOULD BE REFERRED FOR FURTHER DETAILS REGARDING COMMUNICATIONS WITH THE KNOWN SIGNIFICANT OTHER LIOR.
[2021-08-23 10:56] LABS: PROTIME > 90.0 Seconds (10.5-12.1)
[2021-08-23 10:57] LABS: INR > 20.00
--- NOTE | 2021-08-23 15:41 | NUR ---
PER CONCHIS AT [facility] WIPING CLOTH CUTTER'S OFFICE, THIS PATIENT WILL BE A OFFICIAL COURT REPORTER'S CASE. [facility] TO ME[facility]S OFFICE. INFORMATION RELAYED TO JOSE IN [facility]UR[facility] OFFICE. BELONGINGS AND PAPERWORK SENT WITH BODY TO [facility]. PER MTN, PT NOT A CANDIDATE FOR ORGAN/TISSUE DONATION.
== END 2021-08-23 08:13 | DRG 208 ==
LOC: ER 01:51 → EROBS 04:14 → ICU 04:14
PROVIDERS: Emergency Medicine; ADMIT Pediatrics; ATTEND Pediatrics
DX: J96.01 Acute respiratory failure with hypoxia (principal); G92.9 Unspecified toxic encephalopathy; E43 Unspecified severe protein-calorie malnutrition; K72.00 Acute and subacute hepatic failure without coma; K57.31 Diverticulosis of large intestine without perforation or abscess with bleeding; N17.9 Acute kidney failure, unspecified; I46.9 Cardiac arrest, cause unspecified; I49.01 Ventricular fibrillation; I95.9 Hypotension, unspecified; Z88.8 Allergy status to other drugs, medicaments and biological substances; Z68.21 Body mass index [BMI] 21.0-21.9, adult; F31.9 Bipolar disorder, unspecified; Z90.710 Acquired absence of both cervix and uterus; R74.01 Elevation of levels of liver transaminase levels; Z20.822 Contact with and (suspected) exposure to COVID-19
CPT/HCPCS: 10078